=== PATIENT | female | born 1965 | race Caucasian/White ===

== ENCOUNTER 2020-09-24 16:53 | Emergency (ER) | payer OTHER ==
[2020-09-24] MEDS ORDERED: POLYSPORIN OI28.3 G1 TP (17:57)
[2020-09-24] MEDS ORDERED: IBUPROFEN600 MG PO (17:57)
== END 2020-09-24 18:41 | disposition home or self-care (01) ==
LOC: ER1 16:53
DX: S62.605A Fracture of unspecified phalanx of left ring finger, initial encounter for closed fracture (principal); S60.221A Contusion of right hand, initial encounter; S00.81XA Abrasion of other part of head, initial encounter; S60.455A Superficial foreign body of left ring finger, initial encounter; F17.200 Nicotine dependence, unspecified, uncomplicated; Z23 Encounter for immunization; W01.10XA Fall on same level from slipping, tripping and stumbling with subsequent striking against unspecified object, initial encounter; Y92.009 Unspecified place in unspecified non-institutional (private) residence as the place of occurrence of the external cause
CPT/HCPCS: 73110; 73130; 90471; 90715; 99283

== ENCOUNTER 2021-03-01 18:14 | Emergency (ER) | payer SELFPAY ==
[~2021-03-01 18:14] MED LIST: IBUPROFEN600 MG PO; POLYSPORIN OI28.3 G1 TP
[2021-03-01] MEDS ORDERED: [UNRECOGNIZED DRUG - OTHER] TP (20:47)
[2021-03-01] MEDS ORDERED: DECADRON6 MG PO (20:47)
== END 2021-03-01 21:00 | disposition home or self-care (01) ==
LOC: ER1 18:14
DX: L23.7 Allergic contact dermatitis due to plants, except food (principal); F17.290 Nicotine dependence, other tobacco product, uncomplicated; Z88.2 Allergy status to sulfonamides
CPT/HCPCS: 99282